=== PATIENT | male | born 1985 | race Caucasian/White ===

== ENCOUNTER 2023-03-27 13:01 | Emergency (ER) | payer SELFPAY ==
[~2023-03-27] VITALS: Ht 175.3 cm; Wt 71.0 kg
[2023-03-27 13:03] VITALS: BP 119/76; PULSE 112; RESP 16; TEMP 98; O2SAT 99
[2023-03-27] MEDS ORDERED: LIDOCAINE HCL 1% 20ML VIAL (Pyxis) INJ INFIL ONE (14:00)
== END 2023-03-27 15:22 | disposition left against medical advice (07) ==
LOC: ER 13:11
DX: S01.81XA Laceration without foreign body of other part of head, initial encounter (principal); F10.229 Alcohol dependence with intoxication, unspecified; Y90.0 Blood alcohol level of less than 20 mg/100 ml; W18.39XA Other fall on same level, initial encounter; Y93.89 Activity, other specified; Y92.89 Other specified places as the place of occurrence of the external cause; Y99.8 Other external cause status
CPT/HCPCS: 99283

== ENCOUNTER 2024-12-10 06:50 | Emergency (ER) | payer SELFPAY ==
[~2024-12-10] VITALS: Ht 180.3 cm; Wt 77.0 kg
[2024-12-10 06:54] VITALS: O2SAT 98
[2024-12-10 07:14] VITALS: BP 116/67; PULSE 94; RESP 16; TEMP 36.8; O2SAT 99
[2024-12-10 07:31] LABS: BASOPHILS % 0.3 % (0.0-2.0); EOSINOPHILS % 0.3 % (0.0-5.0); HEMATOCRIT. 41.4 % (42.0-52.0); HEMOGLOBIN. 13.7 g/dL (14.0-18.0); LYMPHOCYTES % 19.3 % (20.0-50.0); MEAN CORPUSCULAR HEMOGLOBIN 32.1 pg (28.0-32.0); MEAN CORPUSCULAR HGB CONC 33.1 g/dL (31.0-37.0); MEAN CORPUSCULAR VOLUME 96.9 fL (80.0-94.0); MEAN PLATELET VOLUME 6.4 fl (7.4-10.4); MONOCYTES % 9.5 % (2.0-8.0); NEUTROPHILS % 70.6 % (40.0-76.0); PLATELET 336 x1000/uL (130-400); RED BLOOD CELL COUNT 4.27 mill/uL (4.7-6.1); RED CELL DISTRIBUTION WIDTH 14.5 % (11.6-14.6); WHITE BLOOD COUNT 11.3 x1000/uL (4.5-11.0)
[2024-12-10 07:38] LABS: CHLORIDE 105 mEq/L (98-107); POTASSIUM 3.5 mEq/L (3.5-5.1); SODIUM 140 mEq/L (136-145)
[2024-12-10 07:39] LABS: CALCIUM 8.1 mg/dL (8.7-10.4); CARBON DIOXIDE 29 mEq/L (21-32)
[2024-12-10 07:44] LABS: CREATININE 0.7 mg/dL (0.6-1.3); GLUCOSE 63 mg/dL (70-105); UREA NITROGEN BLOOD 8 mg/dL (9-23)
[2024-12-10 07:54] LABS: ETHANOL BLOOD 356 mg/dL (<10)
== END 2024-12-10 08:19 | disposition home or self-care (01) ==
LOC: ER 06:50
DX: F10.129 Alcohol abuse with intoxication, unspecified (principal); F32.A Depression, unspecified; Y90.8 Blood alcohol level of 240 mg/100 ml or more
CPT/HCPCS: 36415; 80048; 80320; 85025; 99284; G0480